=== PATIENT | female | born 1985 | race African-American/Black ===

== ENCOUNTER 2017-04-08 16:26 | Emergency (ER) | payer MEDICAID ==
[~2017-04-08] VITALS: Ht 165.1 cm; Wt 127.1 kg
[~2017-04-08 16:26] MED LIST: ALBU1.25 NEB; ALPR1TAB10 PO; ERTA1VIA IV
[2017-04-08 16:28] VITALS: BP 133/80
[2017-04-08 17:10] LABS: ASPARTATE AMINO TRANSFERASE 29 U/L (15-37); BLOOD UREA NITROGEN 16 mg/dL (7-18)
== END 2017-04-08 19:15 | disposition home or self-care (01) ==
LOC: ED 19:09
DX: R50.9 Fever, unspecified (principal); R11.2 Nausea with vomiting, unspecified; R42 Dizziness and giddiness; Z87.891 Personal history of nicotine dependence
CPT/HCPCS: 36415; 80053; 83690; 84703; 85025; 99284

== ENCOUNTER 2017-05-22 18:25 | Emergency (ER) | payer MEDICAID ==
[~2017-05-22] VITALS: Ht 165.1 cm; Wt 130.2 kg
[2017-05-22] MEDS ORDERED: SODIUM CHLORIDE FLUSH 10ML SYR IVF ONE (19:00)
[2017-05-22] MEDS ORDERED: GADOBUTROL 10 MMOL/10 ML VIAL ONE (19:26)
[2017-05-22 19:29] LABS: ASPARTATE AMINO TRANSFERASE 43 U/L (15-37); BLOOD UREA NITROGEN 10 mg/dL (7-18)
[2017-05-22 21:12] VITALS: BP 140/78
== END 2017-05-22 21:14 | disposition home or self-care (01) ==
LOC: ED 20:08
DX: R10.11 Right upper quadrant pain (principal)
CPT/HCPCS: 36415; 74183; 80053; 81003; 83605; 84703; 85025; 85651; 86140; 99285; A9585

== ENCOUNTER 2018-05-19 15:48 | Emergency (ER) | payer BC, MEDICAID ==
[~2018-05-19] VITALS: Ht 165.1 cm; Wt 134.2 kg
[2018-05-19 16:39] LABS: BASOPHILS # (AUTO) 0.06 x10^3/uL (0-0.1); BASOPHILS % (AUTO) 1 % (0-1); EOSINOPHILS # (AUTO) 0.29 x10^3/uL (0-0.4); EOSINOPHILS % (AUTO) 3 % (1-7); LYMPHOCYTES # (AUTO) 2.63 x10^3/uL (1-3.4); LYMPHOCYTES % (AUTO) 23 % (22-44); MD NO; MEAN CORPUSCULAR HEMOGLOBIN 30.6 pg (27.0-34.8); MEAN CORPUSCULAR HGB CONC 33.9 g/dL (32.4-35.8); MEAN CORPUSCULAR VOLUME 90.3 fL (80-100); MEAN PLATELET VOLUME 8.9 fL (7.4-10.4); MONOCYTES % (AUTO) 5 % (2-9); NEUTROPHILS # (AUTO) 7.74 x10^3/uL (1.8-6.8); NEUTROPHILS % (AUTO) 68 % (42-75); PLATELET COUNT 252 x10^3/uL (130-400); RED BLOOD COUNT 4.78 x10^6/uL (3.82-5.3); RED CELL DISTRIBUTION WIDTH 14.3 % (9.6-15.2)
[2018-05-19 16:41] LABS: ALANINE AMINOTRANSFERASE 24 U/L (12-78); ALBUMIN 3.5 g/dL (3.4-5.0); ANION GAP 9 mmol/L (5-15); CALCIUM 8.9 mg/dL (8.5-10.1); CHLORIDE 109 mmol/L (98-107); CREATININE 0.82 mg/dL (0.55-1.02)
[2018-05-19 16:46] LABS: ALKALINE PHOSPHATASE 91 U/L (45-117); BILIRUBIN,TOTAL 0.3 mg/dL (0.2-1.0); TOTAL PROTEIN 7.7 g/dL (6.4-8.2)
[2018-05-19 16:56] LABS: MICROSCOPIC AUTO
[2018-05-19 16:57] LABS: CULTURE INDICATED? YES
[2018-05-19] MEDS ORDERED: IBUPROFEN 200 MG TABLET ONE (18:27)
[2018-05-19] MEDS ORDERED: IBUPROFEN 200 MG TABLET PO ONE (18:30)
[2018-05-19 18:35] VITALS: BP 134/84
== END 2018-05-19 18:36 | disposition home or self-care (01) ==
LOC: ED 17:28
DX: R55 Syncope and collapse (principal); N30.90 Cystitis, unspecified without hematuria
CPT/HCPCS: 36415; 70450; 71045; 80053; 81001; 84703; 85025; 87086; 93005; 99285